=== PATIENT | female | born 1970 | race Caucasian/White ===

== ENCOUNTER 2017-03-06 20:55 | Observation (INO) | payer MEDICAID ==
[~2017-03-06] VITALS: Ht 157.5 cm; Wt 72.3 kg
[2017-03-06] MEDS ORDERED: THYROID MEDICATION (21:09)
[2017-03-06 21:54] LABS: BASO # 0.1 (0.0-0.2); BASO % 0.8 % (0.0-2.0); EOS # 0.1 (0.0-0.7); EOS % 1.3 % (0-4.0); GRAN # 4.6 (1.4-6.5); GRAN % 59.7 % (42.2-75.2); LYMPH # 2.3 (1.2-3.4); LYMPH % 30.2 % (20.0-51.0); MEAN CELL VOLUME 79 fl (80.0-100.0); MEAN CORPUSCULAR HGB CONC 31 g/dl (33.0-37.0); MEAN PLATELET VOLUME 10.7 fl (7.4-10.4); MONO # 0.6 (0.1-0.6); MONO % 7.9 % (1.7-9.3); PLATELET COUNT 243 K/mm3 (130-400); RED BLOOD COUNT 4.06 M/mm3 (4.10-5.30); REDCELL DISTRIBUTION WIDTH-CV 21.9 % (11.5-14.5); WHITE BLOOD COUNT 7.7 K/mm3 (4.8-10.8)
[2017-03-06 21:55] LABS: HEMATOCRIT 31.9 % (37.0-47.0); HEMOGLOBIN 9.9 g/dl (12.5-16.0); MEAN CORPUSCULAR HEMOGLOBIN 24 pg (27.0-31.0)
[2017-03-06 22:14] LABS: ADJUSTED CALCIUM 8.6 mg/dL (8.4-10.2); ALBUMIN 4.1 gm/dL (3.5-5.0); BILIRUBIN,TOTAL 0.5 mg/dL (0.0-1.0); C-REACTIVE PROTEIN 1.1 mg/dL (0.0-0.9); CALCIUM 8.7 mg/dL (8.4-10.2); CREATININE, serum 0.8 mg/dL (0.52-1.25); POTASSIUM 3.9 mmol/L (3.4-5.0); TOTAL PROTEIN 7.5 gm/dL (6.4-8.2)
[2017-03-06 23:18] LABS: PH 5 (5-8); SQUAMOUS EPITHELIAL None Seen /hpf; URINE APPEARANCE Cloudy; URINE BACTERIA None Seen /hpf; URINE BILIRUBIN Negative (NEGATIVE); URINE BLOOD 3+ (NEGATIVE); URINE COLOR Amber; URINE GLUCOSE Negative (NEGATIVE); URINE KETONE Trace (NEGATIVE); URINE RBC >50 /hpf; URINE UROBILINOGEN Negative (NEGATIVE); URINE WBC 0-2 /hpf
[2017-03-07 00:40] VITALS: BP 108/61; PULSE 81; TEMP 98.5
[2017-03-07 03:45] VITALS: BP 95/61; PULSE 88; TEMP 98
[2017-03-07 06:35] VITALS: BP 93/57; PULSE 72; TEMP 97.9
[2017-03-07 06:53] LABS: BASO % 0.4 % (0.0-2.0); EOS # 0.1 (0.0-0.7); EOS % 1.3 % (0-4.0); GRAN # 4.1 (1.4-6.5); GRAN % 58.7 % (42.2-75.2); LYMPH # 2.3 (1.2-3.4); MEAN CELL VOLUME 77 fl (80.0-100.0); MEAN CORPUSCULAR HGB CONC 31 g/dl (33.0-37.0); MEAN PLATELET VOLUME 11.1 fl (7.4-10.4); MONO # 0.5 (0.1-0.6); MONO % 7.3 % (1.7-9.3); PLATELET COUNT 193 K/mm3 (130-400); RED BLOOD COUNT 3.33 M/mm3 (4.10-5.30); REDCELL DISTRIBUTION WIDTH-CV 21.8 % (11.5-14.5)
[2017-03-07 06:59] LABS: HEMATOCRIT 25.7 % (37.0-47.0); MEAN CORPUSCULAR HEMOGLOBIN 24 pg (27.0-31.0)
[2017-03-07] MEDS ORDERED: FERROUS SU325 MG/TAB PO (08:08)
[2017-03-07] MEDS ORDERED: SPRINTEC 35 MCG1 TAB PO (08:09)
[2017-03-08] MEDS ORDERED: PERCOCET 325 MG1 TA2 PO (16:00)
[2017-03-08] MEDS ORDERED: IBU600 MG PO (16:00)
== END 2017-03-07 10:50 | disposition home or self-care (01) ==
LOC: COL.ER 20:55 → OB 23:07
PROVIDERS: Nurse Practitioner; Obstetrics & Gynecology
DX: N93.9 Abnormal uterine and vaginal bleeding, unspecified (principal); N92.0 Excessive and frequent menstruation with regular cycle; D64.89 Other specified anemias; E03.9 Hypothyroidism, unspecified; Z98.51 Tubal ligation status
CPT/HCPCS: G0378; J1170; J1200; J1410; J7120

== ENCOUNTER 2017-03-08 11:28 | Day surgery (SDC) | payer MEDICAID ==
[~2017-03-08] VITALS: Ht 160 cm; Wt 72.3 kg
[2017-03-08] VITALS (12 sets, daily range): BP systolic 88–120; BP diastolic 46–88; PULSE 56–76; TEMP 98–98.6
[~2017-03-08 11:28] MED LIST: FERROUS SU325 MG/TAB PO; SPRINTEC 35 MCG1 TAB PO; THYROID MEDICATION
[2017-03-08 12:43] LABS: BASO % 0.6 % (0.0-2.0); EOS % 0.4 % (0-4.0); GRAN # 3.3 (1.4-6.5); GRAN % 61.4 % (42.2-75.2); LYMPH # 1.7 (1.2-3.4); MEAN CELL VOLUME 79 fl (80.0-100.0); MEAN CORPUSCULAR HGB CONC 31 g/dl (33.0-37.0); MONO # 0.3 (0.1-0.6); PLATELET COUNT 197 K/mm3 (130-400); RED BLOOD COUNT 2.77 M/mm3 (4.10-5.30); REDCELL DISTRIBUTION WIDTH-CV 21.7 % (11.5-14.5); WHITE BLOOD COUNT 5.3 K/mm3 (4.8-10.8)
[2017-03-08 12:55] LABS: INR 1.2 (0.8-3.0); PROTHROMBIN TIME 12.8 SECONDS (9.7-12.8)
[2017-03-08 13:08] LABS: ADJUSTED CALCIUM 9.1 mg/dL (8.4-10.2); ALBUMIN 3.7 gm/dL (3.5-5.0); BILIRUBIN,TOTAL 0.4 mg/dL (0.0-1.0); CALCIUM 8.9 mg/dL (8.4-10.2); CREATININE, serum 0.62 mg/dL (0.52-1.25); POTASSIUM 3.8 mmol/L (3.4-5.0); TOTAL PROTEIN 6.9 gm/dL (6.4-8.2)
[2017-03-08 13:10] LABS: HEMATOCRIT 21.8 % (37.0-47.0); HEMOGLOBIN 6.7 g/dl (12.5-16.0); MEAN CORPUSCULAR HEMOGLOBIN 24 pg (27.0-31.0)
[2017-03-08] MEDS ORDERED: IBU600 MG PO (16:00)
[2017-03-08] MEDS ORDERED: PERCOCET 325 MG1 TA2 PO (16:00)
[2017-03-08 20:24] LABS: HEMATOCRIT 26.2 % (37.0-47.0); HEMOGLOBIN 8.6 g/dl (12.5-16.0)
== END 2017-03-08 21:10 | disposition home or self-care (01) ==
LOC: COL.ER 11:28 → SDCO 15:19 → OB 15:19 → COL.ER 15:19 → SDCO 21:10
PROVIDERS: Emergency Medicine; Obstetrics & Gynecology
DX: N92.0 Excessive and frequent menstruation with regular cycle (principal); E03.9 Hypothyroidism, unspecified; D64.9 Anemia, unspecified; D25.9 Leiomyoma of uterus, unspecified; N81.10 Cystocele, unspecified
CPT/HCPCS: OP; J2405; J2704; J3010; J7030; P9016